=== PATIENT | female | born 1980 | race Asian ===

== ENCOUNTER 2018-11-15 20:04 | Emergency (ER) | payer OTHER | END 2018-11-16 00:54 | disposition home or self-care (01) | LOC: FTE 20:04 | DX: S91.352A Open bite, left foot, initial encounter (principal); R40.2252 Coma scale, best verbal response, oriented, at arrival to emergency department; R40.2362 Coma scale, best motor response, obeys commands, at arrival to emergency department; R40.2142 Coma scale, eyes open, spontaneous, at arrival to emergency department; W54.0XXA Bitten by dog, initial encounter; Y92.9 Unspecified place or not applicable | CPT/HCPCS: 99283; Z7502 ==